=== PATIENT | female | born 1985 | race Caucasian/White ===

== ENCOUNTER 2017-11-23 13:49 | Emergency (ER) | payer SELFPAY ==
[~2017-11-23] VITALS: Ht 162.6 cm; Wt 75.0 kg
[2017-11-23 13:56] VITALS: BP 106/70
[2017-11-23] MEDS ORDERED: MORPHINE SULFATE 10 MG/ML CPJ IM ONE (15:00)
[2017-11-23] MEDS ORDERED: ACETAMINOPHEN 325MG TABLET PO ONE (15:00)
[2017-11-23 16:01] LABS: BASOPHILS % 0.8 % (0.0-2.0); EOSINOPHILS % 2.3 % (0.0-5.0); HEMATOCRIT. 40.4 % (36.0-48.0); HEMOGLOBIN. 13.3 g/dL (12.0-16.0); LYMPHOCYTES % 26.7 % (20.0-50.0); MEAN PLATELET VOLUME 10.1 fl (7.4-10.4); MONOCYTES % 8.8 % (2.0-8.0); NEUTROPHILS % 61.4 % (40.0-76.0); PLATELET 285 x1000/uL (130-400); RED BLOOD CELL COUNT 4.75 mill/uL (4.2-5.4); RED CELL DISTRIBUTION WIDTH 13.8 % (11.6-14.6)
[2017-11-23 16:04] LABS: CHLORIDE 106 mEq/L (98-107)
[2017-11-23 16:14] LABS: B-HCG QUANTITATIVE < 1 mIU/mL (<3)
== END 2017-11-23 18:35 | disposition home or self-care (01) ==
LOC: ER 14:03
DX: O26.891 Other specified pregnancy related conditions, first trimester (principal); S20.219A Contusion of unspecified front wall of thorax, initial encounter; R10.9 Unspecified abdominal pain; Z3A.10 10 weeks gestation of pregnancy; V49.88XA Car occupant (driver) (passenger) injured in other specified transport accidents, initial encounter; Y93.89 Activity, other specified; Y92.89 Other specified places as the place of occurrence of the external cause; Y99.8 Other external cause status
CPT/HCPCS: 36415; 71045; 76830; 76856; 80053; 84702; 85025; 86850; 86900; 99285

== ENCOUNTER 2019-04-29 17:55 | Emergency (ER) | payer MEDICAID ==
[~2019-04-29] VITALS: Ht 162.6 cm; Wt 72.0 kg
[2019-04-29 18:08] VITALS: BP 141/71
== END 2019-04-29 21:00 | disposition left against medical advice (07) ==
LOC: ER 17:55
DX: Z53.21 Procedure and treatment not carried out due to patient leaving prior to being seen by health care provider (principal)

== ENCOUNTER 2024-10-28 23:07 | Emergency (ER) | payer MEDICAID ==
[~2024-10-28] VITALS: Ht 162.6 cm; Wt 81.0 kg
[2024-10-28 23:24] VITALS: TEMP 37.1; O2SAT 97
[2024-10-29] MEDS: KETOROLAC 15MG/ML VIAL IM ONE (00:25)
[2024-10-29] MEDS ORDERED: LIDO-53 TP (00:35)
[2024-10-29] MEDS ORDERED: NAPR-1176 MT (00:35)
[2024-10-29 00:42] VITALS: BP 117/72; PULSE 68; RESP 16; O2SAT 100
== END 2024-10-29 00:45 | disposition home or self-care (01) ==
LOC: ER 23:07
DX: R07.89 Other chest pain (principal); Z79.899 Other long term (current) drug therapy; Z79.1 Long term (current) use of non-steroidal anti-inflammatories (NSAID); V89.2XXA Person injured in unspecified motor-vehicle accident, traffic, initial encounter; Y93.89 Activity, other specified; Y92.410 Unspecified street and highway as the place of occurrence of the external cause; Y99.8 Other external cause status
CPT/HCPCS: 71045; 93005; 99283; 96372; J1885; Z7610